=== PATIENT | female | born 1955 | race Caucasian/White ===

== ENCOUNTER → 2016-09-13 | Outpatient (CLI) | payer BC ==
--- NOTE | 2016-09-13 21:29 | DI ---
XR FOOT COMPLETE MIN 3VW WB,09/13/2016 3:17 PM: Clinical History: Hallux varus of the right foot Previous Exam: July 13, 2016 Findings: 4 views of the right foot are obtained with weightbearing, and demonstrate anatomic alignment without fractures. Postsurgical changes are seen within the soft tissues of the plantar surface. There is so me very mild soft tissue swelling. Stable postsurgical changes are seen of the right first proximal p halanx. There are stable degenerative changes of the right first metatarsophalangeal joint. Impression: No significant change from the prior exam.
== END ==
LOC: RAD 15:19
PROVIDERS: ATTEND Podiatrist Foot & Ankle Surgery
DX: M20.11 Hallux valgus (acquired), right foot (principal); M89.8X7 Other specified disorders of bone, ankle and foot; M79.671 Pain in right foot; Z98.890 Other specified postprocedural states
CPT/HCPCS: 73630

== ENCOUNTER 2016-10-19 08:54 | Day surgery (SDC) | payer BC ==
[~2016-10-19 08:54] MED LIST: Clindamycin 900mg (Premix) 50 ML IV ONE; LIDOCAINE W/ SODIUM BICARB 0.5 ML SYR ONE; Lactated Ringers 1,000 ML PRIMARY IV ONE
[2016-10-19 09:28] VITALS: RESP 12
[2016-10-19] MEDS ORDERED: MIDAZOLAM 5 MG/1 ML ONE (09:57)
[2016-10-19] MEDS ORDERED: fentaNYL Inj 250 MCG/5 ML VIAL ONE (09:57)
[2016-10-19] MEDS ORDERED: BUPivacaine Inj 0.5% PF (5mg/ml) 30ml vial ONE (09:57)
[2016-10-19] MEDS ORDERED: DEXAMETHASONE SOD PHOSPHATE 4 MG/1 ML VIAL ONE (09:57)
[2016-10-19] MEDS ORDERED: LIDOCAINE 2%/ EPI 1:200,000 - 20 ML VIAL ONE (09:57)
--- NOTE | 2016-10-19 10:08 | CRNA.PROCE ---
Nerve Block Documentation - - Type of Nerve Block Used: Left Popliteal Fossa Block Position for Nerve Block: Prone Moniters Used During Block: EKG, SPO2, NIBP Oxygen Sumpplented: Yes Sedation Used - Enter Amount in Comment Field: Midazolam (mg): Yes (3mg), Fentanyl (mcg): Yes (100mcg) Skin Prep Used: ChloroPrep Draped: No Technique: Nerve Stimulator Nerve Block Needle Used: 80 mm ProBlk II Stimulation Hz: 2 Stimulation Staring mA: 1.4 Stimulation Ending mA: 0.4 Local Anesthetic - Enter Amt in Comment Field: 0.5 % Bupivacaine Plain (mL): Yes (20ml), 2 % Xylocaine with Epinephrine 1:200,000 (mL): Yes (20ml) Additives to Nerve Blocks: Dexamethasone (mL): Yes (8mg(2ml))
[2016-10-19] MEDS ORDERED: BUPivacaine Liposome/PF (Exparel) Inj 20ml vial INFIL ONE (11:23)
[2016-10-19] MEDS ORDERED: BUPivacaine Inj 0.5% PF (5mg/ml) 10ml vial ONE (11:41)
[2016-10-19] MEDS ORDERED: HYDROcodone-APAP 10 MG-325 MG TABLET PO PRN (13:55)
[2016-10-19] MEDS ORDERED: NORMAL SALINE 10 ML SYRINGE FLUSH IVP PRN (13:55)
--- NOTE | 2016-10-19 14:17 | GEN.OPNOTE ---
Operative Report Surgeon: Jian Duggan DPM Anesthesia Type: Regional, Local (with postoperative subcutaneous exparel.), MAC Anesthesia Provider: Quinn Rossi CRNA Surgery Date: 10/19/16 Preoperative Diagnosis: 1. Right dorsal 2nd met base exostosis. 2. Left hallux valgus. 3. Left hammertoes, 2,3,4,5. 4. Foot pain bilaterally. Postoperative Diagnosis: 1. Right dorsal 2nd met base ganglion. 2. Left hallux valgus. 3. Left hammertoes, 2,3,4,5. 4. Foot pain bilaterally. Procedure: 1. Excision ganglion cyst right dorsal foot. 2. Miramontes bunionectomy left foot. 3. Left 2nd toe PIPJ arthroplasty. 4. Left 3rd toe PIPJ arthroplasty. 5. Left 4th toe FDL percutaneous tenotomy. 6. Left 5th toe PIPJ percutaneous tenotomy. Estimated Blood Loss (mL): 10 (pneumatic cuff use about the right ankle at 250 mmHg pressure for a total of 6 minutes. And around the left ankle for 69 minutes.) Fluids: 1300 mL lactated Ringer's. 900 mg clindamycin preoperative IV. Complications: None Findings at Surgery: The dorsal right foot bony prominence was actually a ganglion cyst that had reformed over the second met cuneiform joint. Indications for the Procedure: Bilateral foot pain. Description of Procedure: The patient was brought to the operating room and placed in the supine position. They had already been given a popliteal block of the lower extremity , and MAC was continued. The foot was prepped and draped in the usual sterile fashion. A timeout was performed. A local block was administered around the second metatarsocuneiform joint to the dorsum of the foot. With have percent Marcaine plain. The foot was then exsanguinated with an elastic Esmarch, after which a pneumatic cuff was inflated about the right ankle to 250 mmHg pressure. A linear skin incision was made in the same area that a prior incision had been made when she had a dorsal getting the cyst removed last year. Skin incision was then carefully dissected, retracting neurovascular structures. Because of the location of the incision, I decided to let the pneumatic cuff down after 6 minutes to make sure the dorsalis pedis artery could be identified and retracted. After letting down the pneumatic cuff and retracting the soft tissues a ganglion cyst was noted over the second met cuneiform joint and in the area of the neurovascular structures. Careful dissection of the lesion found a 1 cm 0.6 cm 0.5 cm ganglion cyst that attached itself to the extensor hallucis longus tendon sheath. The tendon sheath/ganglion cyst was excised in this area. The wound was copiously irrigated. No other ganglion cysts were noted. Capillary refill to the tissues remaining the same. And bleeding was controlled, with no injury to the dorsalis pedis artery noted. After irrigation the incision was closed in layers with 4-0 Vicryl for the extensor retinaculum and deep structures, and 4-0 nylon for the skin. Next attention was directed to the left foot. Percutaneous tenotomies were performed of the left fourth and fifth toes. Utilizing an 18-gauge needle on a 3 mL syringe as a handle. The tip of the needle was used to cut the flexor digital longus tendon by placement through the flexor crease of the 4th and then 5th toes by using a [id number] motion. Next attention was directed to the bunion. A preoperative C-arm radiograph was taken to help delineate the area of concern, and this was marked on the foot. The foot was then exsanguinated with an elastic Esmarch, after which a pneumatic cuff was inflated about the left ankle to 250 mmHg pressure. A linear incision of approximately 5 cm is made over the first metatarsophalangeal joint dorsomedially. This was dissected deep taking care to retract neurovascular structures. The first midtarsal phalangeal joint was then exposed and incised also linearly over the dorsal medial aspect and reflected from the first metatarsal head. A dorsomedial bunion was noted. Also noted in the central medail dorsal 1st MTH was a 5 mm chondral lesion that had filled in with fibrocartilage. The medial and dorsal medial aspects of the first dorsal head were reduced with a sagittal saw. Wounds copiously irrigated. The capsule was freed from the dorsal lateral aspect. And a capsulorrhaphy performed removing the redundant dorsomedial capsule. Under C-arm the sesamoids are brought back into position # 2. And the joint maintained a range of motion of greater than 100. A lateral and L capsulotomy of the first metatarsal joint was also performed. The dorsomedial capsule was then closed with 4-0 Vicryl. Subcutaneous tissues were closed 4-0 Vicryl. And the skin with 4-0 nylon. Attention was now directed to the second and third toes. A dorsal incision was made over the proximal interphalangeal joint of each toe and carried deep to the extensor digitorum longus tendon. The tendon was then transected proximal to the proximal phalangeal head. And then reflected off the proximal interphalangeal joint. The head of the tarsal phases then removed with a sagittal saw. And the base of the middle phalanx cartilage and subchondral plate were removed also with the sagittal saw. This was checked with C-arm and adjusted as necessary. The wound was copiously irrigated. The extensor capsule and tendon apparatus was then reapproximated with 4-0 Vicryl. And the subcutaneous tissues also with 4-0 Vicryl. Skin was closed with a 4-0 running nylon suture. All incision sites were reinforced with Mastisol and Steri-Strips and a dressing consisted of Xeroform, fluffs, Kerlix, and Coban. The left second third toes were dressed individually, prior to the foot being dressed. The right foot dressing was also applied. The left pneumatic cuff was released after 69 minutes total time. And capillary return was noted to all toes of the left foot. Follow-up will be in 1 week. And postop care will be similar to that of her right foot, which she had done just a few months ago.
--- NOTE | 2016-10-19 14:42 | DI ---
XR FOOT COMPLETE MIN 3VW,10/19/2016 1:55 PM: Clinical History: Left hammertoe and hallux valgus. Previous Exam: None at this facility. Findings: 3 views of the left foot are obtained, and demonstrate anatomic alignment. Postsurgical changes are s een consistent with distal osteotomy of the second and third proximal phalanges. Mild degenerative changes are seen of the tarsometatarsal joints. There is enthesopathy at the insert ion of the plantar fascia. Impression: Postsurgical changes as above otherwise unremarkable.
[2016-10-19 16:12] VITALS: TEMP 98
== END 2016-10-19 15:45 | disposition home or self-care (01) ==
LOC: SDSC 08:54
PROVIDERS: ATTEND Podiatrist Foot & Ankle Surgery
DX: M20.12 Hallux valgus (acquired), left foot (principal); M20.42 Other hammer toe(s) (acquired), left foot; M67.471 Ganglion, right ankle and foot; M79.671 Pain in right foot
CPT/HCPCS: 28010 ×2; 28090; 28122; 28285 ×2; 28299; 73630; 76001; 87641; C9290; J2704; J3010; J1100; J2250; J3490; J7120